=== PATIENT | male | born 1995 | race Caucasian/White ===

== ENCOUNTER 2016-12-06 14:09 | Emergency (ER) | payer OTHER ==
--- NOTE | 2016-12-06 14:50 | PDOC ---
Rapid Medical Evaluation Chief Complaint: Back Pain Time Seen by Provider: 12/06/16 14:49 Medical Evaluation: I have performed a brief in-person evaluation of this patient. The patient presents with a chief complaint of: 20 yo M no PMH presents with low back pain x1 day. Has been working out recently but does not include back workouts. Pain is low back, worse with movement I have ordered the following: none. The patient will proceed to the ED for further evaluation.
[2016-12-06 14:53] VITALS: BP 99/59; PULSE 75; TEMP 98.3; BMI 25.0
[2016-12-06] MEDS ORDERED: KETOROLAC TROMETHAMINE 60 MG/2 ML VIAL IM ONE (15:12)
[2016-12-06] MEDS ORDERED: KETOROLAC TROMETHAMINE 30 MG/1 ML VIAL ONE (15:14)
--- NOTE | 2016-12-06 15:19 | PDOC ---
History of Present Illness - General Chief Complaint: Back Pain Stated Complaint: LOWER BACK PAIN Time Seen by Provider: 12/06/16 14:49 History Source: Patient Exam Limitations: No Limitations - History of Present Illness Initial Comments: 12/06/16 15:14 20 yr male with low back pain after doing leg exercises at the gym yesterday woke up with stiff back. Non radiating no numbness or tingling, no saddle anesthesia neg urine or bowel dysfunction. Pt has no history of low back pain , no sciatica. no fever, neg abd pain. no meds taken [employer]. Past History - Past Medical History Allergies/Adverse Reactions: Allergies Allergy/AdvReac Type Severity Reaction Status Date / Time pollen extracts Allergy Verified 12/06/16 14:49 Home Medications: Ambulatory Orders Cyclobenzaprine HCl [Flexeril 10 mg] 5 mg PO TID PRN #21 tablet 12/06/16 Naproxen [Naprosyn -] 500 mg PO BID PRN #20 tablet 12/06/16 Asthma: Yes - Immunization History Immunization Up to Date: Yes - Psycho/Social/Smoking Cessation Hx Anxiety: No Suicidal Ideation: No Smoking Status: No Smoking History: Never smoked Number of Cigarettes Smoked Daily: 0 Hx Alcohol Use: No Drug/Substance Use Hx: No Substance Use Type: None *Physical Exam - Vital Signs Last Vital Signs Temp Pulse Resp BP Pulse Ox 98.3 F 75 16 99/59 100 12/06/16 14:49 12/06/16 14:49 12/06/16 14:49 12/06/16 14:49 12/06/16 14:49 - Physical Exam General Appearance: Yes: Nourished, Appropriately Dressed HEENT: positive: EOMI, COREEN, Normal ENT Inspection, TMs Normal, Pharynx Normal Neck: positive: Supple. negative: Tender Respiratory/Chest: positive: Lungs Clear, Normal Breath Sounds Cardiovascular: positive: Regular Rhythm, Regular Rate Gastrointestinal/Abdominal: positive: Normal Bowel Sounds, Soft. negative: Tender Musculoskeletal: positive: Normal Inspection, Muscle Spasm (right lower lumbar paraspinal neg vetebral tenderness , soft tissue tenderness). negative: CVA Tenderness (L), Vertebral Tenderness Extremity: positive: Normal Capillary Refill, Normal Inspection, Normal Range of Motion, Other (neg straight leg raise). negative: Tender Integumentary: positive: Normal Color, Dry, Warm Neurologic: positive: Fully Oriented, Alert, Normal Mood/Affect, Normal Response , Motor Strength 02/02 Medical Decision Making - Medical Decision Making 12/06/16 15:23 cc: acute low back pain with spasm woke up this am at gym yesterday doing leg work on the machines will give toradol, flexeril for spasm no saddle anesthesia neg bowel or bladder dysfunction ambulatory with limp *DC/Admit/Observation/Transfer Diagnosis at time of Disposition: Low back strain Qualifiers: Encounter type: initial encounter Qualified Code(s): S39.012A - Strain of muscle, fascia and tendon of lower back, initial encounter - Discharge Dispostion Disposition: HOME Condition at time of disposition: Good - Prescriptions Prescriptions: Cyclobenzaprine HCl [Flexeril 10 mg] 5 mg PO TID PRN #21 tablet PRN Reason: Muscle Spasms Naproxen [Naprosyn -] 500 mg PO BID PRN #20 tablet PRN Reason: Back Pain - Referrals Referrals: James Levin MD [Staff Physician] - - Patient Instructions Additional Instructions: apply ice to lower back every 2hrs for 15 minutes alternate with heat take flexeril for muscle spasm as needed take naproysn for pain Do not Drive, operate machinery or drink alcohol while taking flexeril follow with your doctor for follow up Sunday no gym activity until pain has resolved return if Worse
== END 2016-12-06 15:27 | disposition home or self-care (01) ==
LOC: JERFT 14:09
PROC: 3E0233Z Introduction of Anti-inflammatory into Muscle, Percutaneous Approach (ICD-10-PCS; principal; 2016-12-06)
DX: S39.012A Strain of muscle, fascia and tendon of lower back, initial encounter (principal); X58.XXXA Exposure to other specified factors, initial encounter; Y93.B1 Activity, exercise machines primarily for muscle strengthening; Y92.39 Other specified sports and athletic area as the place of occurrence of the external cause
CPT/HCPCS: 96372; 99281-25

== ENCOUNTER 2018-03-26 13:39 | Emergency (ER) | payer OTHER ==
[2018-03-26 14:03] VITALS: BP 120/81; PULSE 80; TEMP 97; BMI 25.7
[2018-03-26] MEDS ORDERED: IBUPROFEN 400 MG TABLET (FP) PO ONE ×2 (14:29→14:35)
--- NOTE | 2018-03-26 14:31 | PDOC ---
History of Present Illness - General Chief Complaint: Injury Stated Complaint: INJURY Time Seen by Provider: 03/26/18 14:05 History Source: Patient Exam Limitations: No Limitations - History of Present Illness Initial Comments: 03/26/18 14:28 22 yr male twisted his left ankle yesterday walking dog stepped in a pothole. Pt has swelling and pain to the left ankle. Past History - Past Medical History Allergies/Adverse Reactions: Allergies Allergy/AdvReac Type Severity Reaction Status Date / Time pollen extracts Allergy Verified 03/26/18 13:58 Home Medications: Ambulatory Orders NK [No Known Home Medication] 03/26/18 Asthma: Yes COPD: No - Immunization History Immunization Up to Date: Yes - Suicide/Smoking/Psychosocial Hx Smoking Status: No Smoking History: Never smoked Have you smoked in the past 12 months: No Number of Cigarettes Smoked Daily: 0 Information on smoking cessation initiated: No Hx Alcohol Use: No Drug/Substance Use Hx: No Substance Use Type: None Review of Systems - Review of Systems Able to Perform ROS?: Yes Is the patient limited Cymro proficient: No Musculoskeletal: Yes: Symptoms Reported *Physical Exam - Vital Signs Last Vital Signs Temp Pulse Resp BP Pulse Ox 97 F L 80 16 120/81 100 03/26/18 13:59 03/26/18 13:59 03/26/18 13:59 03/26/18 13:59 03/26/18 13:59 - Physical Exam General Appearance: Yes: Nourished, Appropriately Dressed Musculoskeletal: positive: Normal Inspection Extremity: positive: Normal Capillary Refill, Tender, Swelling, Erythema (left lateral ankle , ttp lateral soft tissue ) Integumentary: positive: Normal Color, Dry, Warm Neurologic: positive: Fully Oriented, Alert, Normal Mood/Affect, Normal Response , Motor Strength 5/5 Procedures - Splinting Pre-Made Type: aircast (crutches) ED Treatment Course - RADIOLOGY Radiology Studies Ordered: Category Date Time Status ANKLE & FOOT-LEFT* [RAD] Stat Radiology 03/26/18 14:05 Taken *DC/Admit/Observation/Transfer Diagnosis at time of Disposition: Left ankle sprain Qualifiers: Encounter type: initial encounter Involved ligament of ankle: other ligament Qualified Code(s): S93.492A - Sprain of other ligament of left ankle, initial encounter - Discharge Dispostion Disposition: HOME Condition at time of disposition: Good - Referrals Referrals: James Levin MD [Staff Physician] - - Patient Instructions Printed Discharge Instructions: DI for Ankle Sprain Additional Instructions: elevate and apply ice every 2hrs for 20 minutes for the next 2 days while awake take ibuprofen (motrin, advil all over the counter) 600-800mg every 8hrs for pain use the air cast splint while awake remove to sleep and bathe use the crutches to non weight bear you should see the orthopedist this week or early next week for follow up and clearance to return to work - Post Discharge Activity Forms/Work/School Notes: Back to Work
== END 2018-03-26 14:43 | disposition home or self-care (01) ==
LOC: JERFT 13:39
PROC: 2W3RX1Z Immobilization of Left Lower Leg using Splint (ICD-10-PCS; principal; 2018-03-26)
DX: S93.492A Sprain of other ligament of left ankle, initial encounter (principal); X50.1XXA Overexertion from prolonged static or awkward postures, initial encounter; Y93.K1 Activity, walking an animal; Y92.414 Local residential or business street as the place of occurrence of the external cause; Y99.8 Other external cause status
CPT/HCPCS: 29515; 73610-TC-LT-FY; 73630-TC-LT; 99281-25